=== PATIENT | male | born 1965 | race Two or more races ===

== ENCOUNTER 2021-01-24 01:42 | Emergency (ER) | payer MEDICAID ==
[~2021-01-24] VITALS: Ht 165.1 cm; Wt 75.0 kg
[2021-01-24 01:47] VITALS: BP 132/72
[2021-01-24] MEDS ORDERED: AZITHROMYCIN 500 MG TABLET PO ONE (02:30)
[2021-01-24] MEDS ORDERED: LIDOCAINE/PF 1% 2 ML VIAL IM ONE ×2 (02:30)
[2021-01-24] MEDS ORDERED: CefTRIAXone SODIUM 1 GM/VIAL IM ONE ×2 (02:30)
== END 2021-01-24 02:57 | disposition home or self-care (01) ==
LOC: EMS 01:44
DX: Z71.1 Person with feared health complaint in whom no diagnosis is made (principal); Z20.2 Contact with and (suspected) exposure to infections with a predominantly sexual mode of transmission
CPT/HCPCS: 96372; 99283; J0696; J3490; Q9967

== ENCOUNTER 2021-09-13 17:23 | Emergency (ER) | payer MEDICAID ==
[~2021-09-13] VITALS: Ht 165.1 cm; Wt 75.0 kg
[2021-09-13 17:29] VITALS: BP 133/78
[2021-09-13 18:08] LABS: APPEARANCE,URINE CLEAR (CLEAR); BILIRUBIN,URINE NEGATIVE (NEGATIVE); GLUCOSE, URINE (UA) TRACE mg/dL (NEGATIVE); KETONES,URINE NEGATIVE (NEGATIVE); LEUKOCYTE ESTERASE ,URINE NEGATIVE (NEGATIVE); NITRATE,URINE NEGATIVE (NEGATIVE); OCCULT BLOOD,URINE NEGATIVE (NEGATIVE); PH,URINE 5.5 (5.0-8.0); PROTEIN,URINE TRACE mg/dL (NEGATIVE); SPECIFIC GRAVITIY, URINE 1.031 (1.003-1.030); UROBILINOGEN,URINE <=1.0 mg/dL (<=1.0)
[2021-09-13] MEDS ORDERED: LIDOCAINE/PF 1% 2 ML VIAL IM ONE (18:15)
[2021-09-13] MEDS ORDERED: CefTRIAXone SODIUM 1 GM/VIAL IM ONE (18:15)
[2021-09-13] MEDS ORDERED: DOXY-354 PO (18:19)
== END 2021-09-13 18:50 | disposition home or self-care (01) ==
LOC: EMS 17:23
DX: A64 Unspecified sexually transmitted disease (principal); F10.20 Alcohol dependence, uncomplicated
CPT/HCPCS: 81003; 87491; 87591; 96372; 99283; J0696; J3490